=== PATIENT | female | born 1995 | race Caucasian/White ===

== ENCOUNTER 2022-10-13 23:54 | Inpatient (IN) | payer BC ==
[~2022-10-13] VITALS: Ht 160 cm; Wt 82.6 kg
[~2022-10-13 23:54] MED LIST: CALCIUM 500 MG1 EAC1 PO; IRON159 MG PO; PRENATAL VITAM1 EACH PO
--- NOTE | 2022-10-14 07:48 | PR ---
[facility] [address] [facility] [place], [place] [address] Signed Progress Notes IP Datetime Report Generated by DORIS: 10/14/2022 07:48 PROGRESS NOTES: [id number] Impression: Reassuring Heart Rate Procedures: Artificial ROM; Sterile Vag Exam Plan: Continue Present Management VITAL SIGNS: [id number] Vital Signs: Reviewed; Within Normal Limits EXAM: [id number] Dilatation: 1.5 Effacement: 0 Station: -2 Contractions: occ MEMBRANES: [id number] Comments: Getting more uncomfortable though minimal change in her exam. Will continue. FETUS A: [id number] FHR Baseline: 125 Variability: Moderate 6-25bpm Accelerations: 15X15 Decelerations: None FHR Category: Category I Presentation: Vertex Comments on Fetus A: no evidence of metabolic acidosis FETUS B: [id number] Signing Physician: Kait Brewer MD Copies: ~ *Electronically Signed* 10/14/22 0748 KAIT BREWER MD PATIENT NAME: EMILIA RAMIREZ PROGRESS NOTE DATE OF : 93 PHYSICIAN: KAIT BREWER MD RPT #: [id number] REPORT IS CONFIDENTIAL AND NOT TO BE RELEASED WITHOUT AUTHORIZATION
--- NOTE | 2022-10-14 12:34 | PR ---
[facility] [address] [facility] [place], [place] [address] Signed Progress Notes IP Datetime Report Generated by DORIS: 10/14/2022 12:33 PROGRESS NOTES: [id number] Impression: Normal Progression of Labor; Reassuring Heart Rate Procedures: Sterile Vag Exam Plan: Continue Present Management VITAL SIGNS: [id number] Vital Signs: Reviewed; Within Normal Limits EXAM: [id number] Dilatation: 4.0 Effacement: 70 Station: -2 Contractions: occ MEMBRANES: [id number] Comments: More comfortable after epidural but nauseated. Will give Zofran IV now. Her BP has not really changed from her baseline but the slightly lower BP may be contributing to her nausea as well. FETUS A: [id number] FHR Baseline: 125 Variability: Moderate 6-25bpm Accelerations: 15X15 Decelerations: None FHR Category: Category I Presentation: Vertex Comments on Fetus A: no evidence of metabolic acidosis FETUS B: [id number] Signing Physician: Kait Brewer MD Copies: ~ *Electronically Signed* 10/14/22 1233 KAIT BREWER MD PATIENT NAME: EMILIA RAMIREZ PROGRESS NOTE DATE OF : 93 PHYSICIAN: KAIT BREWER MD RPT #: [id number] REPORT IS CONFIDENTIAL AND NOT TO BE RELEASED WITHOUT AUTHORIZATION
--- NOTE | 2022-10-14 16:05 | PR ---
[facility] [address] [facility] [place], [place] [address] Signed Progress Notes IP Datetime Report Generated by DORIS: 10/14/2022 16:05 PROGRESS NOTES: [id number] Impression: Reassuring Heart Rate Procedures: Intrauterine Pressure Catheter Plan: Continue Present Management Other Plans: prob augmentation VITAL SIGNS: [id number] Vital Signs: Reviewed; Within Normal Limits EXAM: [id number] Dilatation: 4.0 Effacement: 70 Station: -2 Contractions: occ MEMBRANES: [id number] Comments: No progress. I suspect the contractions are inadequate. Will place IUPC and start pit as indicated. FETUS A: [id number] FHR Baseline: 125 Variability: Moderate 6-25bpm Accelerations: 15X15 Decelerations: None FHR Category: Category I Presentation: Vertex Comments on Fetus A: no evidence of metabolic acidosis FETUS B: [id number] Signing Physician: Kait Brewer MD Copies: ~ *Electronically Signed* 10/14/22 1605 KAIT BREWER MD PATIENT NAME: EMILIA RAMIREZ PROGRESS NOTE DATE OF : 93 PHYSICIAN: KAIT BREWER MD RPT #: [id number] REPORT IS CONFIDENTIAL AND NOT TO BE RELEASED WITHOUT AUTHORIZATION
--- NOTE | 2022-10-14 19:03 | PR ---
[facility] [address] [facility] [place], [place] [address] Signed Progress Notes IP Datetime Report Generated by DORIS: 10/14/2022 19:03 PROGRESS NOTES: [id number] Impression: Reassuring Heart Rate Procedures: Sterile Vag Exam Plan: Continue Present Management Other Plans: prob augmentation VITAL SIGNS: [id number] Vital Signs: Reviewed; Within Normal Limits EXAM: [id number] Dilatation: 7.0 Effacement: 80 Station: -2 Contractions: occ MEMBRANES: [id number] Comments: Progressing. Will continue with close observation. FETUS A: [id number] FHR Baseline: 125 Variability: Moderate 6-25bpm Accelerations: 15X15 Decelerations: None FHR Category: Category I Presentation: Vertex Comments on Fetus A: no evidence of metabolic acidosis FETUS B: [id number] Signing Physician: Kait Brewer MD Copies: ~ *Electronically Signed* 10/14/221902 KAIT BREWER MD PATIENT NAME: EMILIA RAMIREZ PROGRESS NOTE DATE OF : 93 PHYSICIAN: KAIT BREWER MD RPT #: [id number] REPORT IS CONFIDENTIAL AND NOT TO BE RELEASED WITHOUT AUTHORIZATION
--- NOTE | 2022-10-14 21:39 | PR ---
[facility] [address] [facility] [place], [place] [address] Signed Progress Notes IP Datetime Report Generated by DORIS: 10/14/2022 21:39 PROGRESS NOTES: [id number] Impression: Reassuring Heart Rate Procedures: Scalp Electrode; Sterile Vag Exam Plan: Anesthesia Consult Other Plans: continue position changes VITAL SIGNS: [id number] Vital Signs: Reviewed; Within Normal Limits EXAM: [id number] Dilatation: 6.0 Effacement: 80 Station: -1 Contractions: occ MEMBRANES: [id number] Comments: Significant cervical edema anteriorly but still soft and stretchy. Will redose epidural and attempt further position changes to see if this can help bring the baby lower in the pelvis. Will continue close observation of status as well. FETUS A: [id number] FHR Baseline: 125 Variability: Moderate 6-25bpm Accelerations: 15X15 Decelerations: None FHR Category: Category I Presentation: Vertex Comments on Fetus A: no evidence of metabolic acidosis FETUS B: [id number] Signing Physician: Kait Brewer MD Copies: ~ *Electronically Signed* 10/14/22 213 KAIT BREWER MD PATIENT NAME: EMILIA RAMIREZ PROGRESS NOTE DATE OF : 93 PHYSICIAN: KAIT BREWER MD RPT #: [id number] REPORT IS CONFIDENTIAL AND NOT TO BE RELEASED WITHOUT AUTHORIZATION
--- NOTE | 2022-10-15 08:17 | PR ---
[facility] [address] [place] [place], [place] [address] Signed PP Progress Notes Datetime Report Generated by CPN: 10/15/2022 08:17 SUBJECTIVE: [id number] Pain: Within Normal Limits Pain Comments: c/o uterine tenderness Nausea/Vomiting: Denies Vital Signs: [id number] Abdomen/Uterus: Normal Lochia: Normal Extremities: Normal IMPRESSION/PLAN/PROCEDURES: [id number] Impression: Normal Progression Plan: Continue Present Management Procedures: None Progress Notes: 27 yo PPD 1 s/p late yesterday evening. Doing well. Reports lower uterine tenderness. Denies MALLORY, CP, SOB, F/C, N/V, RUQ pain, changes in vision. Ambulating, voiding on own, pain moderately controlled, tolerating regular diet. AFVSS Abdomen: Normal appearing uterine TTP. A/P: Continue rounting care. Disposition in house. Likely discharge home tomorrow AM. Signing Physician: Renzo Jane MD Copies: ~ *Electronically Signed* 10/15/22 0817 RENZO JANE MD PATIENT NAME: EMILIA RAMIREZ PROGRESS NOTE DATE OF : 93 PHYSICIAN: RENZO JANE MD RPT #: [id number] REPORT IS CONFIDENTIAL AND NOT TO BE RELEASED WITHOUT AUTHORIZATION
--- NOTE | 2022-10-16 07:33 | PR ---
[facility] [address] [facility] [place], [place] [address] Signed PP Progress Notes Datetime Report Generated by CPN: 10/16/2022 07:33 SUBJECTIVE: [id number] Pain: Within Normal Limits Pain Comments: c/o uterine tenderness Nausea/Vomiting: Denies Vital Signs: [id number] Vital Signs: Reviewed; Within Normal Limits Cardiovascular: Not Done Respiratory: Not Done Abdomen/Uterus: Abnormal Lochia: Normal Vulva/Perineum: Not Done Breasts: Not Done CVA Tenderness: Not Done Extremities: Normal Incision: Not Applicable Progress: Normal Exam Comments: Fundus firm, NT @ U. H/H 11.9/34.6, WBC 22.6, plat 215k IMPRESSION/PLAN/PROCEDURES: [id number] Impression: Normal Progression Plan: Discharge Procedures: None Progress Notes: Doing well. She desires discharge. Signing Physician: Kait Brewer MD Copies: ~ *Electronically Signed* 10/16/22732 KAIT BREWER MD PATIENT NAME: EMILIA RAMIREZ PROGRESS NOTE DATE OF : 93 PHYSICIAN: KAIT BREWER MD RPT #: [id number] REPORT IS CONFIDENTIAL AND NOT TO BE RELEASED WITHOUT AUTHORIZATION
== END 2022-10-16 12:30 | disposition home or self-care (01) | DRG 807 ==
LOC: FBC 10-14 00:01
PROVIDERS: ADMIT Obstetrics & Gynecology; ATTEND Obstetrics & Gynecology
PROC: 10E0XZZ Delivery of Products of Conception, External Approach (ICD-10-PCS; principal; 2022-10-14)
PROC: 0KQM0ZZ Repair Perineum Muscle, Open Approach (ICD-10-PCS; 2022-10-14)
PROC: 10907ZC Drainage of Amniotic Fluid, Therapeutic from Products of Conception, Via Natural or Artificial Opening (ICD-10-PCS; 2022-10-14)
PROC: 00HU33Z Insertion of Infusion Device into Spinal Canal, Percutaneous Approach (ICD-10-PCS; 2022-10-14)
PROC: 3E0R3BZ Introduction of Anesthetic Agent into Spinal Canal, Percutaneous Approach (ICD-10-PCS; 2022-10-14)
PROC: 3E0P7VZ Introduction of Hormone into Female Reproductive, Via Natural or Artificial Opening (ICD-10-PCS; 2022-10-14)
DX: O70.1 Second degree perineal laceration during delivery (principal); Z37.0 Single live birth; Z3A.39 39 weeks gestation of pregnancy; Z67.40 Type O blood, Rh positive; Z20.822 Contact with and (suspected) exposure to COVID-19
CPT/HCPCS: 36415; 85027; 86850; 86900; 86901; 87502; A9270; J2405; J2590; J2795; J3010; J7121; U0003